=== PATIENT | female | born 1960 | race Caucasian/White ===

== ENCOUNTER 2016-11-18 13:18 | Emergency (ER) | payer OTHER ==
[~2016-11-18] VITALS: Ht 172.7 cm; Wt 56.7 kg
[~2016-11-18 13:18] MED LIST: /METH500TA OR; ABIL1TAB5 PO; ALBUTEROL INH; ALPR1TAB3 OR; BACIDCA PO; BACT800T5 PO; BENA25TA4 PO; COLA100C2 OR; DIFL150T OR; EFFE150C OR; EFFE150C PO; FLUN25SP; FLUN7IN IN; GABA-279 PO; GABA300C3 PO; GABA600T3 OR; GEOD1CAP PO; GEOD40CA2 PO; IBUP600T OR; IBUP60TA PO; LIDO1OIN2 TOP; MORP15TA2 PO; MORP15TASA PO; MORP60TA3 OR; MSIR30TA PO; NICO21PAT TD; OMEP40CA2 PO; POTA20VL PO; PRAZ1CAP PO; PRIL40CA OR; ROBA750T4 PO; SENN8.6T14 OR; SENNOSIDES PO; TIOT18INH INH; TRAZO50TA PO; VANC50VL PO; XANA1TAB2 PO; ZIPR40CA11 PO; ZIPR80CAP OR; morphine IR PO; spiriva INH
[2016-11-18] MEDS ORDERED: FLUT1LOT EX (13:53)
[2016-11-18] MEDS ORDERED: ABIL30TA PO (13:53)
[2016-11-18 14:34] LABS: MEAN CORPUSCULAR HEMOGLOBIN 32.7 pg (27.0-33.0); MEAN CORPUSCULAR HGB CONC 34.6 g/dl (32.0-36.5); MEAN CORPUSCULAR VOLUME 94.8 fl (80.0-96.0); RED CELL DISTRIBUTION WIDTH 11.8 % (11.5-14.5); WHITE BLOOD COUNT 6.6 K/mm3 (4.0-10.0)
[2016-11-18 14:56] LABS: METHADONE URINE NEGATIVE (NEGATIVE)
[2016-11-18 15:08] LABS: ALBUMIN 3.9 GM/DL (3.2-5.2); ALBUMIN/GLOBULIN RATIO 1.34 (1.00-1.93); ALKALINE PHOSPHATASE 94 U/L (45-117); ALT/SGPT 14 U/L (12-78); ANION GAP 7 MEQ/L (8-16); AST/SGOT 11 U/L (15-37); BILIRUBIN,DIRECT < 0.1 MG/DL (0.0-0.2); BILIRUBIN,TOTAL 0.2 MG/DL (0.2-1.0); BLOOD UREA NITROGEN 15 MG/DL (7-18); CALCIUM LEVEL 9.2 MG/DL (8.5-10.1); CARBON DIOXIDE LEVEL 28 MEQ/L (21-32); CHLORIDE LEVEL 112 MEQ/L (98-107); CREATININE FOR GFR 0.73 MG/DL (0.55-1.02); GLOMERULAR FILTRATION RATE > 60.0 (>51); GLUCOSE, FASTING 55 MG/DL (70-105); POTASSIUM SERUM 4.3 MEQ/L (3.5-5.1); SODIUM LEVEL 147 MEQ/L (136-145); TOTAL PROTEIN 6.8 GM/DL (6.4-8.2)
[2016-11-18 21:33] VITALS: BP 130/68
--- NOTE | 2016-11-19 06:42 | ECGEPIP ---
Stationary ECG Study [facility] - ED Test Date: 2016-11-18 Pat Name: BERE CORNEJO Department: Room: - Gender: F Burlap Roll Coverer: krzysztof : 1960 Requested By: LI Gloria Order Number: [id number] Reading MD: Gopal Meléndez Measurements Intervals [place] Rate: 91 P: 82 SD: 182 QRS: 71 QRSD: 91 T: 66 QT: 359 QTc: 443 Interpretive Statements SINUS RHYTHM CW 08/04/16 -SIMILAR Electronically Signed On 11-19-2016 6:41:49 EDT by Gopal Meléndez
== END 2016-11-18 21:39 | disposition short-term general hospital (02) ==
LOC: M ED 14:28
DX: F29 Unspecified psychosis not due to a substance or known physiological condition (principal); R91.1 Solitary pulmonary nodule
CPT/HCPCS: 36415; 80048; 80076; 80306; 84443; 85027; 93005; 99285; G0480

== ENCOUNTER 2017-01-22 22:51 | Inpatient (IN) | payer OTHER ==
[~2017-01-22] VITALS: Ht 165.1 cm; Wt 79.4 kg
[~2017-01-22 22:51] MED LIST changes: +ABIL30TA PO; +FLUT1LOT EX; +GABA-282 PO; -GABA300C3 PO
[2017-01-22] MEDS ORDERED: NS 1,000 ML IV ONE (23:00)
[2017-01-22] MEDS ORDERED: diphenhydrAMINE INJ 50MG/ML VIAL (J1200) IM ONE (23:15)
[2017-01-22] MEDS ORDERED: HALOPERIDOL 5 MG/ML VIAL (J1630) IM ONE (23:15)
[2017-01-22] MEDS ORDERED: LORazepam 2 MG/ML VIAL (J2060) IM ONE (23:15)
[2017-01-22 23:49] LABS: VENOUS PARTIAL PRESSURE CO2 42.2 mmHg (38.0-50.0); VENOUS STANDARD HCO3 26.9 MEQ/L; VENOUS TOTAL CO2 28.9 MEQ/L (24.0-28.0)
[2017-01-22 23:54] LABS: BASO # 0.1 K/mm3 (0.0-0.2); BASO % 0.8 % (0.0-1.0); EOS # 0.2 K/mm3 (0.0-0.50); LARGE UNSTAINED CELL # 0.3 K/mm3 (0.0-0.4); LARGE UNSTAINED CELL % 3.2 % (0.0-4.0); LYMPH # 2.6 K/mm3 (1.5-4.5); MEAN CORPUSCULAR HEMOGLOBIN 32.3 pg (27.0-33.0); MEAN CORPUSCULAR HGB CONC 33.5 g/dl (32.0-36.5); MEAN CORPUSCULAR VOLUME 96.7 fl (80.0-96.0); MONO # 0.9 K/mm3 (0.0-0.8); MONO % 9.6 % (0.0-5.0); NEUTROPHILS # 5.2 K/mm3 (1.8-7.7); NEUTROPHILS % 58.4 % (36.0-66.0); PLATELET COUNT, AUTOMATED 294 k/mm3 (150-450); RED CELL DISTRIBUTION WIDTH 12.7 % (11.5-14.5); WHITE BLOOD COUNT 8.9 K/mm3 (4.0-10.0)
[2017-01-23 00:17] LABS: ALBUMIN/GLOBULIN RATIO 1.33 (1.00-1.93); ALKALINE PHOSPHATASE 115 U/L (45-117); ALT/SGPT 16 U/L (12-78); ANION GAP 6 MEQ/L (8-16); AST/SGOT 8 U/L (15-37); BILIRUBIN,DIRECT < 0.1 MG/DL (0.0-0.2); BILIRUBIN,TOTAL 0.2 MG/DL (0.2-1.0); BLOOD UREA NITROGEN 11 MG/DL (7-18); CARBON DIOXIDE LEVEL 30 MEQ/L (21-32); CHLORIDE LEVEL 107 MEQ/L (98-107); GLOMERULAR FILTRATION RATE > 60.0 (>51); GLUCOSE, FASTING 114 MG/DL (70-105); POTASSIUM SERUM 4.1 MEQ/L (3.5-5.1); SODIUM LEVEL 143 MEQ/L (136-145)
[2017-01-23 01:12] LABS: METHADONE URINE NEGATIVE (NEGATIVE)
--- NOTE | 2017-01-23 10:44 | ECGEPIP ---
Stationary ECG Study [facility] - ED Test Date: 2017-01-22 Pat Name: BERE CORNEJO Department: Room: - Gender: F Research Physiologist: arthur : 1960 Requested By: ROSMERY Li Order Number: [id number] Reading MD: Adamaris Rivera Measurements Intervals [place] Rate: 112 P: 73 MA: 132 QRS: 67 QRSD: 90 T: 63 QT: 316 QTc: 432 Interpretive Statements SINUS TACHYCARDIA POSSIBLE LEFT ATRIAL ENLARGEMENT POSSIBLE RIGHT VENTRICULAR CONDUCTION DELAY ABNORMAL RHYTHM ECG INCREASED RATE 11/18/16 Electronically Signed On 01-23-2017 10:43:57 EDT by Adamaris Rivera
[2017-01-23] MEDS ORDERED: ALBUTEROL SULFATE 2.5 MG/0.5 ML INH NEB SOLN INH ONE (12:30)
[2017-01-23] MEDS ORDERED: IPRATROPIUM 0.5MG/ALBUTEROL 2.5MG INH SOL UD 3ML (DUONEB)(J7620) NEB ONE (12:30)
[2017-01-23] MEDS ORDERED: MOM 30ML SUSPENSION UDC PO PRN (16:15)
[2017-01-23] MEDS ORDERED: traZODone 50 MG TAB PO PRN (16:15)
[2017-01-23] MEDS ORDERED: MAALOX 30 ML SUSP *UDC PO PRN (16:15)
[2017-01-23] MEDS ORDERED: ACETAMINOPHEN TAB 650MG DOSE (2X325MG) PO PRN (16:15)
[2017-01-23] MEDS ORDERED: ADVI200T PO (17:20)
[2017-01-23] MEDS ORDERED: SPIR1CAP INH (17:20)
[2017-01-23 18:15] VITALS: BP 123/64
[2017-01-24 06:19] VITALS: BP 116/68
[2017-01-24] MEDS ORDERED: LORazepam 2 MG TAB PO PRN (08:30)
[2017-01-24] MEDS ORDERED: OLANZapine 10 MG TAB PO PRN (08:30)
--- NOTE | 2017-01-24 09:33 | MHHPEPDOC ---
[facility] History & Physical History and Physical DATE OF ADMISSION: January 23, 2017 at 16:15 LEGAL STATUS AT ADMISSION: 9.39 CHIEF COMPLAINT: "Just because my sister said I did it doesn't mean I did. She' s a drug addict". HISTORY OF THE PRESENT ILLNESS: Patient is a 56-year-old female, who a of the [place] . She denies any deployments. She has a psychiatrist at the [facility], Mary Turner, who was scheduled to see her on . Pt states she was seen by the doctor 2 weeks ago but upon obtaining collateral information staff say she no showed that appointment and has no future appts scheduled. Pt has been off her medications for some time. She claims to be waiting for a delivery of VA meds and refuses to provide database report writer with the names of her prescribed psychiatric meds. [place] [facility] [place] provide names and doses. Pt has along h/o admissions at this facility. Her most recent admission was 11/18/16 which resulted in transfer to a [facility] facility. Other admissions here resulted in transfer to [facility]. Pt is not insisting on VA care at this time. She is rude, sarcastic and antagonistic on interview, refusing to answer questions and provide information. PSYCHIATRIC REVIEW OF SYSTEMS: Affective: hostile Anxiety:high Trauma: unable to determine Psychosis: appears to have delusions and delusions by history resulting in self- harm Personally: uncooperative PAST PSYCHIATRIC HISTORY: Prior Psychiatric Disorder: long history of schizoaffective disorder, bipolar type Outpatient Treatment: [facility] [place], Dr. Mary Turner. Suicidal/Self injurious: burning self, overdose Psychotropic Medication History: pt would not provide information, current meds are Invega, Prazosin and Gabapentin ALLERGIES: Please see below. PCN and topiramate FAMILY PSYCHIATRIC HISTORY: Pt claims sister is drug addict. SOCIAL HISTORY: Early Relations/development: . pt refused to discuss Sibling order: has 1 sister Paternal relationships: pt refused to answer Education: pt declined to answer Occupational: no response from pt Legal: laughs Martial: laughs again Economic: pt refused to answer Supports: pt told database report writer to go away. Abuse/trauma: nonaudible answer SUBSTANCE ABUSE HISTORY: pt states she attended AA for 4 years PAST MEDICAL/SURGICAL HISTORY: 1. . 2. . VITAL SIGNS: Temperature 97.5 pulse , respiratory rate 20, blood pressure 116/ 68 pulse on room air. MENTAL STATUS EXAMINATION: General appearance: Patient is a 56-year old female, who is lying in bed in hospital attire and appears older than stated age. Speech: fluent in [place]ene[place], skills intact Thought processes: appears to be having delusions, refuses to answer questions Thought content: anger towards sister and staff Abstract reasoning and computation: refused to participate Description of associations: refused to answer Description of abnormal or psychotic thoughts: appears to be internally preoccupied, h/o auditory hallucinations Judgment: poor Insight: poor Orientation: would not respond to questions. Recent and remote memory: unable to assess. Attention span and concentration: poor Fund of knowledge: poor Mood: irritable and angry Affect: congruent, lying in bed DIAGNOSES: 1. Schizophrenia 2. bipolar disorder by history 3. PTSD by history ASSESSMENT: Pt has been approached by several staff members this morning including this database report writer who are interested in planning her care and prepare her for discharge. pt is not cooperative to the process refusing to provide information and answer most questions. She is agreeable to remaining here for treatment. No SRIRAM for sister, unable to contact for collateral information. Will attempt to contact [facility] [place] for a list of most recent medications if pt will sign SRIRAM. PROBLEM LIST: 1. suicidal 2. poor coping skills 3. treatment non-compliance. INITIAL TREATMENT PLAN: 1. Patient was admitted on a 9.39 2. Complete history was obtained. 3. With patients permission, family will be contacted and database will be expanded. 4. Patients medication regimen will be reviewed and changed accordingly. 5. Patient will be provided with protected environment. 6. Patient will be treated with individual, group, and milieu therapies. 7. Patient will receive supportive psych-education. 8. Discharge planning will commence immediately. 9. Outpatient follow-up treatment will be strongly recommended. 10. The initial treatment plan will focus initially on: see above problem list. ESTIMATED LENGTH OF STAY: 7-10 DAYS. TIME SPENT COUNSELING AND COORDINATING INITIAL CARE: 50minutes. Medications Scheduled Tiotropium [place] Monohydrate (Spiriva Handihaler) 18 Mcg Cap, 1 INHALATION INH DAILY, (Reported) Scheduled PRN Ibuprofen (Advil) 200 Mg Tab, 200 MG PO for PAIN, (Reported) Allergies Coded Allergies: Penicillins (Unverified Allergy, Unknown, 12/11/14) per pt Topiramate (Unverified Allergy, Unknown, 12/11/14) per pt Anna Boland January 24, 2017 09:33
[2017-01-24] MEDS: PALIPERIDONE 6 MG ER TAB (INVEGA) PO SCH (09:45)
[2017-01-24] MEDS: GABAPENTIN 300 MG CAP PO SCH ×3 (09:45→20:07)
--- NOTE | 2017-01-24 09:52 | HPEPDOC ---
Medical History and Physical Date of Admission January 23, 2017 at 16:15 History and Physical PCP: [facility] HPI: 56yoF admitted to [facility] for unspecified depressive disorder, being medically examined today. The patient was brought to the emergency department for possible overdose of ibuprofen 60 tablets, muscle relaxers 20 tablets. Patient apparently did not admit to taking any medications and declines to answer questions in the emergency department. Patient had apparently been off her medications recently. Poison control was consulted in the emergency department with recommendation for IV fluids and repeat salicylate level. She was subsequently observed and deemed stable for transfer to [facility] to 01/22/17. The patient is reluctant to participate with exam however does answer and provide some limited history, she becomes agitated with questions. Much of her history is taken from her chart. She states "There is nothing wrong with me". No acute medical complaints today. Denies any fevers, chills, weakness, fatigue , CARVER, CP, SOB, cough, palpitations, abdominal pain, flank pain, N/V/D or changes in bowel or bladder habits. PMHx: Environmental allergies PTSD Schizophrenia H/O SI Chronic back pain COPD PSHX: Documented history of chest tube placement though patient denies this today. SOCHX: Resides in: Living in [facility] with her sister. Marital Status: Single. Kids: 0 Employment: Disabled ETOH: Denies Smoking: One half pack per day. Illicit Drugs: Denies IV Drug Use: Denies Tattoos done unprofessionally: 2 at 17 years old FAMHX: Mother: age 62 secondary to pancreatic cancer Father: age 68 secondary to an unknown lung disorder Siblings: Alive, well Unexpected deaths due to medical reasons: None. ROS: As noted in HPI, otherwise 10pt ROS of systems reviewed and remarkable only for patient noting she is post-menopausal, stating her LMP was in 1999. States she has chronic low back pain and takes wkmf-dua-seiclar medication such as Tylenol or ibuprofen as needed. Patient states her pain is controlled. PE: GEN: 56yo, appears older than stated age. Well-nourished, well developed. No acute distress. Alert and oriented x 3. Agitated throughout exam, reluctant to provide answers. HEENT: Normocephalic, atraumatic. Pupils equal round reactive to light. Extraocular movements are intact. No nystagmus appreciated. Sclera nonicteric. Conjunctiva without injection. Nose midline. Moist mucous membranes. Dentition fair. Pharynx pink and moist, no cobblestoning. Neck supple, trachea midline. No lymphadenopathy or thyromegaly appreciated. CHEST: Regular rate and rhythm, +S1, +S2 LUNGS: Mild end expiratory wheeze appreciated in upper lung [place]. No rales or rhonchi. Breathing appears symmetric and easy. Patient is speaking in full sentences. No accessory muscle use. ABD: Round, soft, non-tender, non-distended. +Bowel sounds throughout. No rebound or guarding. No costovertebral angle tenderness. EXT: Pulses 2+ bilaterally dorsalis pedis and radial. No lower extremity edema appreciated. SKIN: [place], dry, warm. Capillary refill <2sec. No rashes. NEURO: Alert and oriented x 3. No focal deficits appreciated. EK01/22/17 SINUS TACHYCARDIA POSSIBLE LEFT ATRIAL ENLARGEMENT POSSIBLE RIGHT VENTRICULAR CONDUCTION DELAY ABNORMAL RHYTHM ECG INCREASED RATE 11/18/16 A&P:56yoF admitted to [facility] for unspecified depressive disorder 1. Psych. Plan per Psychiatry. EKG on file. 2. Nicotine dependence. Patch available. 3. Borderline EKG. No cardiac signs or symptoms appreciated on exam, follow with PCP. 4. Follow up [facility] 5. COPD. Continue Spiriva. Albuterol 2 puffs every 4 hours as needed. 6. H/O Pulmonary nodule. Biopsy pending per chart. Continue with outpt management. 7. Staff member Christy TURPIN present throughout exam. Vital Signs Vital Signs Date Time Temp Pulse Resp B/P (MAP) Pulse Ox O2 Delivery O2 Flow Rate FiO2 01/24/17 06:19 97.5 93 20 116/68 (84) Room Air 01/23/17 18:15 96 Laboratory Data Labs 24H Item Value Date Time Sodium Level 143 MEQ/L 01/22/17 2340 Potassium Level 4.1 MEQ/L 01/22/17 2340 Chloride Level 107 MEQ/L 01/22/17 2340 Carbon Dioxide Level 30 MEQ/L 01/22/17 2340 Anion Gap 6 MEQ/L L 01/22/17 2340 Blood Urea Nitrogen 11 MG/DL 01/22/17 2340 Creatinine 1.00 MG/DL 01/22/17 2340 Glomerular Filtration Rate > 60.0 01/22/17 2340 Fasting Glucose 114 MG/DL H 01/22/17 2340 Calcium Level 10.0 MG/DL 01/22/17 2340 Total Bilirubin 0.2 MG/DL 01/22/17 2340 Direct Bilirubin < 0.1 MG/DL 01/22/17 2340 Aspartate Amino Transf (AST/SGOT) 8 U/L L 01/22/17 2340 Alanine Aminotransferase (ALT/SGPT) 16 U/L 01/22/17 2340 Alkaline Phosphatase 115 U/L 01/22/17 2340 Total Creatine Kinase 86 U/L 01/22/17 2340 Total Protein 7.0 GM/DL 01/22/17 2340 Albumin 4.0 GM/DL 01/22/17 2340 Albumin/Globulin Ratio 1.33 01/22/170 Thyroid Stimulating Hormone (TSH) 0.659 uIU/ML 01/22/17 2340 White Blood Count 8.9 K/mm3 01/22/17 2340 Red Blood Count 5.03 M/mm3 01/22/17 2340 Hemoglobin 16.3 g/dl H 01/22/17 2340 Hematocrit 48.7 % H 01/22/17 2340 Mean Corpuscular Volume 96.7 fl H 01/22/17 2340 Mean Corpuscular Hemoglobin 32.3 pg 01/22/17 2340 Mean Corpuscular Hemoglobin Concent 33.5 g/dl 01/22/17 2340 Red Cell Distribution Width 12.7 % 01/22/17 2340 Platelet Count 294 k/mm3 01/22/17 2340 Salicylates Level 5.4 MG/DL 01/23/17 0406 Urine Opiates Screen NEGATIVE 01/22/17 2359 Urine Methadone Screen NEGATIVE 01/22/179 Acetaminophen Level < 2.0 UG/ML L 01/22/17 2340 Urine Barbiturates Screen NEGATIVE 01/22/17 2359 Urine Phencyclidine Screen NEGATIVE 01/22/179 Urine Amphetamines Screen NEGATIVE 01/22/17 2359 Urine Benzodiazepines Screen NEGATIVE 01/22/179 Urine Cocaine Metabolite Screen NEGATIVE 01/22/17 2359 Urine Cannabinoids Screen NEGATIVE 01/22/179 Ethyl Alcohol Level 0.004 % 01/22/17 2340 Home Medications Scheduled Tiotropium [place] Monohydrate (Spiriva Handihaler) 18 Mcg Cap, 1 INHALATION INH DAILY Scheduled PRN Ibuprofen (Advil) 200 Mg Tab, 200 MG PO for PAIN Allergies Coded Allergies: Penicillins (Unverified Allergy, Unknown, 12/11/14) per pt Topiramate (Unverified Allergy, Unknown, 12/11/14) per pt Deya Corrales January 24, 2017 09:51
[2017-01-24] MEDS ORDERED: ALBUTEROL 90 MCG/ACT 8GM HFA INHALER INH PRN (10:00)
[2017-01-24] MEDS: TIOTROPIUM INHALER/CAPSULE (SPIRIVA) INH SCH (11:43)
[2017-01-24 18:10] VITALS: BP 113/82
[2017-01-24 20:09] VITALS: BP 110/64
[2017-01-24] MEDS ORDERED: PRAZOSIN 1 MG CAP PO SCH (21:00)
[2017-01-25 06:32] VITALS: BP 112/65
[2017-01-25] MEDS: TIOTROPIUM INHALER/CAPSULE (SPIRIVA) INH SCH (08:00)
[2017-01-25] MEDS: PALIPERIDONE 6 MG ER TAB (INVEGA) PO SCH (09:00)
[2017-01-25] MEDS: GABAPENTIN 300 MG CAP PO SCH ×2 (09:00→16:00)
--- NOTE | 2017-01-25 14:22 | MHDSPDOC ---
[facility] Discharge Summary Discharge Summary DATE OF ADMISSION: January 23, 2017 at 16:15 DATE OF DISCHARGE: January 25, 2017 DISCHARGE DIAGNOSES: 1. Schizophrenia 2. PTSD by history REASON FOR ADMISSION: pt's sister called 911 after she found employ bottles of muscle relaxers, Advil and ibuprofen. Pt had threatened suicide earlier in the presence of the sister. Pt was despondent after she had to give up her home for code violations. Pt is a former member of the [place] and [facility] trips to [facility]. She refused to sign SRIRAM's or answer our questions regarding transfer yesterday. We contacted the [facility] outpt clinic and found out she was scheduled to be seen there on 01/11/17 but failed to show. It appears she cancelled the appt in September 2016. Pt claims to be missing her VA medications that come to her via the [employer]. However, since she did not keep her appt it is unlikely her medications were sent out. She was assaultive to [facility] staff in the ED and required restraint. She initially refused all treatment efforts but gradually became a little more cooperative to our interventions. She would not make any decisions regarding where she preferred treatment. She refused to tell us her medications. CONSULTANTS INVOLVED: na TREATMENT AND PROGRESS ON THE UNIT : Invega 6 mg po was ordered along with prazosin and gabapentin. She would only take acetaminophen and prazosin last night. She continues to present with far off stare, irritability, and labile mood. Observed smiling at times. No interaction with peers observed. She appeared to sleep last night. She ate at meal times. She did not attending programming. Lactation Specialist attempted to discuss DAVILA medication with her and she stated she had been on that medication in the past and it caused her to "sleep a week of my life away". She refused to have additional discussion about medication. She refused to allow us to contact her sister to discuss housing options. We explained options to her but she declined to allow us to assist her in any way. HOSPITAL COURSE: Over 2 days there has been no progress in the therapeutic alliance or treatment adherence. Hiren is very angry and cannot engage very long before she becomes hostile and sarcastic. She has benefitted from the safe environment. She continues to claim she did not overdose on medications. EK01/22/17 SINUS TACHYCARDIA POSSIBLE LEFT ATRIAL ENLARGEMENT POSSIBLE RIGHT VENTRICULAR CONDUCTION DELAY ABNORMAL RHYTHM ECG INCREASED RATE 11/18/16 pt declined repeat ECG. DISCHARGE ASSESSMENT: Pt was invited to treatment team meeting this morning and accepted. At that time she agreed to SRIRAM for OR but not for family. She was able to tell us she wanted to be transported to the OR. We immediately began the process for her. She continues to deny any psychotic symptoms but it is obvious from observation that she has internal stimuli that is distracting and is affecting her functioning. She would not be a candidate for discharge but is a candidate for transfer since she is a [place] and a bed is available for her. Report given and documents faxed to [facility]. It is unknown if pt has made prior suicide attempts. Family history and personal history are unknown MENTAL STATUS EXAMINATION ON DISCHARGE: Patient is a 56-year old female, who is dressed in hospital attire, white, curly hair, poor eye contact and appears older than stated age. Speech is soft and low in tone, speaks when addressed. does not initiate conversation Language skills are intact Thought processes including: suspected delusions - calling her sister a drug addict and accusing her of having orgies. She has some FOI but no IOR. Her thinking is concrete. Thought content: irrational, illogical Abstract reasoning, and computation: poor Description of associations: poor Description of abnormal or psychotic thoughts: laughing at times when no visible stimulus is available, accusing others of doing things that are not happening. Judgment: poor Insight: poor Orientation to refuses to answer questions but appears oriented to place, month , person. Recent and remote memory: unable to assess. Attention span and concentration: poor Fund of knowledge: poor. Mood: labile, irritable Affect: constricted. MEDICATIONS ON DISCHARGE: refer to patients med orders for paliperidone 6 mg q a.m., gabapentin 600 mg tid and prazosin 1 mg at hs. Pt took trazodone 50 mg on 01/24/17, her first night on the unit. PLAN/FOLLOWUP ARRANGEMENTS: Transfer to [facility] in [facility], outpatient services in place at the [facility]. Dr. Rut Turner. The amount of time spent in the coordination of care for this patient was approximately 30 minutes. Vital Signs/I&Os Vital Signs Date Time Temp Pulse Resp B/P (MAP) Pulse Ox O2 Delivery O2 Flow Rate FiO2 5/18/17 06:32 98.2 80 18 112/65 (81) 01/24/17 06:19 Room Air 01/23/17 18:15 96 Medications Scheduled Tiotropium [place] Monohydrate (Spiriva Handihaler) 18 Mcg Cap, 1 INHALATION INH DAILY, (Reported) Scheduled PRN Ibuprofen (Advil) 200 Mg Tab, 200 MG PO for PAIN, (Reported) Allergies Coded Allergies: Penicillins (Unverified Allergy, Unknown, 12/11/14) per pt Topiramate (Unverified Allergy, Unknown, 12/11/14) per pt Anna Boland January 25, 2017 14:22
== END 2017-01-25 17:45 | disposition short-term general hospital (02) | DRG 885 ==
LOC: EDBD 22:51 → M ED 23:08 → M ED INP 01-23 16:15 → M PSY 01-23 17:35
PROVIDERS: ADMIT Psychiatry & Neurology Psychiatry; ATTEND Psychiatry & Neurology Psychiatry
DX: F20.9 Schizophrenia, unspecified (principal); F43.10 Post-traumatic stress disorder, unspecified; F17.210 Nicotine dependence, cigarettes, uncomplicated; R94.31 Abnormal electrocardiogram [ECG] [EKG]; J44.9 Chronic obstructive pulmonary disease, unspecified; R91.1 Solitary pulmonary nodule; Z88.0 Allergy status to penicillin; Z88.8 Allergy status to other drugs, medicaments and biological substances; Z79.899 Other long term (current) drug therapy; Z91.5 Personal history of self-harm; Z80.0 Family history of malignant neoplasm of digestive organs; Z83.6 Family history of other diseases of the respiratory system

== ENCOUNTER 2017-06-20 14:53 | Emergency (ER) | payer OTHER ==
[~2017-06-20 14:53] MED LIST changes: +ABIL10TA9 PO; -ABIL1TAB5 PO; -ABIL30TA PO; +ABIL30TA4 PO; +ADVI200T PO; +SPIR1CAP INH
[2017-06-20 16:17] LABS: MEAN CORPUSCULAR HEMOGLOBIN 32.4 pg (27.0-33.0); MEAN CORPUSCULAR VOLUME 95.1 fl (80.0-96.0); RED CELL DISTRIBUTION WIDTH 12.4 % (11.5-14.5); WHITE BLOOD COUNT 8.7 10^3/uL (4.0-10.0)
[2017-06-20 16:52] LABS: ALBUMIN/GLOBULIN RATIO 1.33 (1.00-1.93); ALKALINE PHOSPHATASE 81 U/L (45-117); ALT/SGPT 21 U/L (12-78); ANION GAP 10 MEQ/L (8-16); AST/SGOT 18 U/L (15-37); BILIRUBIN,DIRECT < 0.1 MG/DL (0.0-0.2); BILIRUBIN,TOTAL 0.3 MG/DL (0.2-1.0); BLOOD UREA NITROGEN 7 MG/DL (7-18); CALCIUM LEVEL 9.8 MG/DL (8.5-10.1); CARBON DIOXIDE LEVEL 23 MEQ/L (21-32); CHLORIDE LEVEL 104 MEQ/L (98-107); CREATININE FOR GFR 0.67 MG/DL (0.55-1.02); GLOMERULAR FILTRATION RATE > 60.0 (>51); GLUCOSE, FASTING 132 MG/DL (70-105); POTASSIUM SERUM 3.6 MEQ/L (3.5-5.1); SODIUM LEVEL 137 MEQ/L (136-145)
--- NOTE | 2017-06-20 17:18 | ECGEPIP ---
Stationary ECG Study [facility] - ED Test Date: 2017-06-20 Pat Name: BERE CORNEJO Department: Room: - Gender: F Compensation Analyst: : 1960 Requested By: GURDEEP Cartwright Order Number: [id number] Reading MD: Israel Macedo Measurements Intervals [place] Rate: 93 P: 73 RI: 175 QRS: 58 QRSD: 90 T: 64 QT: 340 QTc: 425 Interpretive Statements SINUS RHYTHM POSSIBLE LEFT ATRIAL ENLARGEMENT INC. RBBB SIMILAR TO 01/22/17 Electronically Signed On 06-20-2017 17:09:39 EDT by Israel Macedo
[2017-06-20 17:52] LABS: METHADONE URINE NEGATIVE (NEGATIVE)
[2017-06-21 00:39] VITALS: BP 128/68
== END 2017-06-21 00:46 ==
LOC: M ED 14:53
DX: Z04.6 Encounter for general psychiatric examination, requested by authority (principal); F20.9 Schizophrenia, unspecified; J44.9 Chronic obstructive pulmonary disease, unspecified; M54.9 Dorsalgia, unspecified; G89.29 Other chronic pain; F43.10 Post-traumatic stress disorder, unspecified; J30.89 Other allergic rhinitis; F17.210 Nicotine dependence, cigarettes, uncomplicated; Z79.899 Other long term (current) drug therapy; Z88.8 Allergy status to other drugs, medicaments and biological substances; Z88.0 Allergy status to penicillin
CPT/HCPCS: 80048; 80076; 80307; 84443; 85027; 93005; 99285; G0480

== ENCOUNTER 2018-04-05 12:58 | Emergency (ER) | payer OTHER ==
[2018-04-05 13:58] LABS: BASO # 0.1 10^3/uL (0.0-0.2); BASO % 0.7 % (0.0-1.0); EOS # 0.2 10^3/uL (0.0-0.50); EOS % 2.9 % (0.0-3.0); HEMATOCRIT 46.8 % (36.0-47.0); HEMOGLOBIN 15.5 g/dl (12.0-15.5); IMMATURE GRANULOCYTE % 0.3 % (0-3.0); LYMPH # 2.1 10^3/uL (1.5-4.5); LYMPH % 30.3 % (24.0-44.0); MEAN CORPUSCULAR HEMOGLOBIN 32.6 pg (27.0-33.0); MEAN CORPUSCULAR HGB CONC 33.1 g/dl (32.0-36.5); MEAN CORPUSCULAR VOLUME 98.5 fl (80.0-96.0); MONO # 0.8 10^3/uL (0.0-0.8); MONO % 10.9 % (0.0-5.0); NEUTROPHILS # 3.8 10^3/uL (1.8-7.7); NEUTROPHILS % 54.9 % (36.0-66.0); PLATELET COUNT, AUTOMATED 275 10^3/uL (150-450); RED BLOOD COUNT 4.75 10^6/uL (4.00-5.40); RED CELL DISTRIBUTION WIDTH 12.7 % (11.5-14.5); WHITE BLOOD COUNT 6.9 10^3/uL (4.0-10.0)
[2018-04-05 14:12] LABS: INR 0.91; PROTHROMBIN TIME 12.4 SECONDS (12.1-14.4)
[2018-04-05 14:13] LABS: PARTIAL THROMBOPLASTIN TIME 26.3 SECONDS (25.4-37.6)
[2018-04-05 14:21] LABS: ANION GAP 6 MEQ/L (8-16); BLOOD UREA NITROGEN 11 MG/DL (7-18); CALCIUM LEVEL 8.7 MG/DL (8.5-10.1); CARBON DIOXIDE LEVEL 28 MEQ/L (21-32); CHLORIDE LEVEL 109 MEQ/L (98-107); CPK CREATINE PHOSPHOKINASE 210 U/L (26-192); CREATININE FOR GFR 0.61 MG/DL (0.55-1.30); ETHYL ALCOHOL (ETHANOL) < 0.003 % (0.000-0.010); FREE T4 1.42 NG/DL (0.76-1.46); GLOMERULAR FILTRATION RATE > 60.0 (>51); GLUCOSE, FASTING 114 MG/DL (70-100); MAGNESIUM LEVEL 2.2 MG/DL (1.8-2.4); POTASSIUM SERUM 3.8 MEQ/L (3.5-5.1); SODIUM LEVEL 143 MEQ/L (136-145); TROPONIN I < 0.02 NG/ML (< 0.10)
[2018-04-05 14:27] LABS: CK-MB VALUE MASS 1.9 NG/ML (<3.6); THYROID STIMULATING HORMONE 0.481 uIU/ML (0.358-3.740)
[2018-04-05 16:23] LABS: KETONE, URINE AUTO RFX NEGATIVE (NEGATIVE); LEUKOCYTE ESTERASE UR AUTO RFX NEGATIVE (NEGATIVE); MUCUS, URINE RFX SMALL (NEGATIVE); NITRITE, URINE AUTO RFX NEGATIVE (NEGATIVE); RBC, URINE AUTO RFX 0 /HPF (0-3); SPECIFIC GRAVITY UR AUTO RFX 1.008 (1.002-1.035); SQUAM EPITHELIAL CELL UR AURFX 0 /HPF (0-6); WBC, URINE AUTO RFX 0 /HPF (0-3)
[2018-04-05 16:36] LABS: AMPHETAMINES LEVEL URINE NEGATIVE (NEGATIVE); BARBITURATES URINE NEGATIVE (NEGATIVE); BENZODIAZEPINES URINE NEGATIVE (NEGATIVE); CANNABINOIDS URINE NEGATIVE (NEGATIVE); COCAINE METABOLITE URINE NEGATIVE (NEGATIVE); METHADONE URINE NEGATIVE (NEGATIVE); OPIATES URINE NEGATIVE (NEGATIVE); PHENCYCLIDINE URINE NEGATIVE (NEGATIVE)
== END 2018-04-05 17:03 | disposition home or self-care (01) ==
LOC: M ED 12:58
DX: R55 Syncope and collapse (principal); S20.211A Contusion of right front wall of thorax, initial encounter; X58.XXXA Exposure to other specified factors, initial encounter; Y92.099 Unspecified place in other non-institutional residence as the place of occurrence of the external cause; Y93.01 Activity, walking, marching and hiking; Y99.9 Unspecified external cause status; I45.19 Other right bundle-branch block; F43.10 Post-traumatic stress disorder, unspecified; F41.9 Anxiety disorder, unspecified; F32.9 Major depressive disorder, single episode, unspecified; J44.9 Chronic obstructive pulmonary disease, unspecified; Z72.0 Tobacco use; Z79.899 Other long term (current) drug therapy; Z88.0 Allergy status to penicillin; Z88.8 Allergy status to other drugs, medicaments and biological substances
CPT/HCPCS: 71045

== ENCOUNTER 2018-04-08 11:33 | Inpatient (IN) | payer OTHER ==
[2018-04-08 12:47] LABS: HEMATOCRIT 46.8 % (36.0-47.0); HEMOGLOBIN 15.7 g/dl (12.0-15.5); MEAN CORPUSCULAR HEMOGLOBIN 32.2 pg (27.0-33.0); MEAN CORPUSCULAR HGB CONC 33.5 g/dl (32.0-36.5); MEAN CORPUSCULAR VOLUME 95.9 fl (80.0-96.0); PLATELET COUNT, AUTOMATED 266 10^3/uL (150-450); RED BLOOD COUNT 4.88 10^6/uL (4.00-5.40); RED CELL DISTRIBUTION WIDTH 12.3 % (11.5-14.5); WHITE BLOOD COUNT 7.3 10^3/uL (4.0-10.0)
[2018-04-08 13:10] LABS: ALBUMIN 3.5 GM/DL (3.2-5.2); ALBUMIN/GLOBULIN RATIO 1.06 (1.00-1.93); ALKALINE PHOSPHATASE 71 U/L (45-117); ALT/SGPT 38 U/L (12-78); ANION GAP 9 MEQ/L (8-16); AST/SGOT 29 U/L (7-37); BILIRUBIN,DIRECT 0.2 MG/DL (0.0-0.2); BILIRUBIN,TOTAL 0.4 MG/DL (0.2-1.0); BLOOD UREA NITROGEN 7 MG/DL (7-18); CALCIUM LEVEL 8.9 MG/DL (8.5-10.1); CARBON DIOXIDE LEVEL 27 MEQ/L (21-32); CHLORIDE LEVEL 107 MEQ/L (98-107); CREATININE FOR GFR 0.78 MG/DL (0.55-1.30); ETHYL ALCOHOL (ETHANOL) < 0.003 % (0.000-0.010); GLOMERULAR FILTRATION RATE > 60.0 (>51); GLUCOSE, FASTING 105 MG/DL (70-100); POTASSIUM SERUM 3.9 MEQ/L (3.5-5.1); SODIUM LEVEL 143 MEQ/L (136-145); THYROID STIMULATING HORMONE 0.472 uIU/ML (0.358-3.740); TOTAL PROTEIN 6.8 GM/DL (6.4-8.2)
[2018-04-08 13:13] LABS: ACETAMINOPHEN LEVEL < 2.0 UG/ML (10.0-30.0)
[2018-04-08 18:04] LABS: AMPHETAMINES LEVEL URINE NEGATIVE (NEGATIVE); BARBITURATES URINE NEGATIVE (NEGATIVE); BENZODIAZEPINES URINE NEGATIVE (NEGATIVE); CANNABINOIDS URINE NEGATIVE (NEGATIVE); COCAINE METABOLITE URINE NEGATIVE (NEGATIVE); METHADONE URINE NEGATIVE (NEGATIVE); OPIATES URINE NEGATIVE (NEGATIVE); PHENCYCLIDINE URINE NEGATIVE (NEGATIVE)
[2018-04-08] MEDS ORDERED: traZODone 50 MG TAB PO (23:00)
[2018-04-08] MEDS ORDERED: MOM 30ML SUSPENSION UDC PO (23:00)
[2018-04-08] MEDS ORDERED: MAALOX 30 ML SUSP *UDC PO (23:00)
[2018-04-09] MEDS ORDERED: ALBUTEROL 90 MCG/ACT 8GM HFA INHALER INH (09:30)
[2018-04-09] MEDS: TIOTROPIUM INHALER/CAPSULE (SPIRIVA) INH (09:47)
[2018-04-09] MEDS: ACETAMINOPHEN TAB 650MG DOSE (2X325MG) PO (19:41)
[2018-04-09] MEDS: ARIPiprazole 10 MG TAB PO (21:00)
[2018-04-09] MEDS ORDERED: ARIPiprazole 15 MG TAB (AbiLIFY) PO (21:00)
[2018-04-10] MEDS: ACETAMINOPHEN TAB 650MG DOSE (2X325MG) PO ×4 (01:39→23:44)
[2018-04-10] MEDS: ARIPiprazole 10 MG TAB PO ×2 (08:39→20:47)
[2018-04-10] MEDS: TIOTROPIUM INHALER/CAPSULE (SPIRIVA) INH (08:40)
[2018-04-11] MEDS: ACETAMINOPHEN TAB 650MG DOSE (2X325MG) PO ×2 (06:28→16:52)
[2018-04-11] MEDS: TIOTROPIUM INHALER/CAPSULE (SPIRIVA) INH (09:16)
[2018-04-11] MEDS: ARIPiprazole 10 MG TAB PO ×2 (09:16→20:23)
[2018-04-11] MEDS: ARIPiprazole MONOHYDRATE 400 MG INJ (ABILIFY)(J0401) IM (11:23)
[2018-04-12] MEDS: ACETAMINOPHEN TAB 650MG DOSE (2X325MG) PO ×2 (03:21→11:37)
[2018-04-12] MEDS: TIOTROPIUM INHALER/CAPSULE (SPIRIVA) INH (08:37)
[2018-04-12] MEDS: ARIPiprazole 10 MG TAB PO (08:37)
== END 2018-04-12 11:45 | disposition home or self-care (01) | DRG 885 ==
LOC: M PSY 04-09 → M ED 11:33 → M ED INP 22:47
DX: F20.0 Paranoid schizophrenia (principal); J44.9 Chronic obstructive pulmonary disease, unspecified; F17.210 Nicotine dependence, cigarettes, uncomplicated; J30.9 Allergic rhinitis, unspecified; F43.10 Post-traumatic stress disorder, unspecified; M54.9 Dorsalgia, unspecified; Z79.899 Other long term (current) drug therapy; Z62.810 Personal history of physical and sexual abuse in childhood; Z88.0 Allergy status to penicillin

== ENCOUNTER 2018-11-17 20:23 | Emergency (ER) | payer OTHER ==
[~2018-11-17] VITALS: Ht 165.1 cm; Wt 109.1 kg
[~2018-11-17 20:23] MED LIST changes: +ABIL400I IM; +ARIP10TAB PO; +ARIP1TAB3; -EFFE150C PO; +EFFE150C2 PO; +GABA-1171 PO; -GABA-279 PO; -GABA-282 PO; +GABA-843 PO; +GEOD40CA13 PO; -GEOD40CA2 PO; +METH75TA; +PERC5TAB12 PO; +PROAAER10 INH; +[UNRECOGNIZED DRUG - CODE]; +[UNRECOGNIZED DRUG - CODE] PO
[2018-11-17] MEDS ORDERED: METH75TA (20:30)
[2018-11-17] MEDS ORDERED: ABIL20TA5 (20:30)
[2018-11-17] MEDS ORDERED: ACETAMINOPHEN/CODEINE 300MG/30MG 12.5 ML UDC PO ONE (22:15)
[2018-11-17] MEDS ORDERED: IPRATROPIUM 0.5MG/ALBUTEROL 2.5MG INH SOL UD 3ML (DUONEB)(J7620) NEB ONE ×2 (22:15)
[2018-11-17] MEDS ORDERED: methylPREDNISolone INJ 125 MG/2 ML VIAL (J2930) IM ONE (22:15)
[2018-11-17] MEDS ORDERED: CHERSYP3 PO (23:14)
[2018-11-17] MEDS ORDERED: PRED20TA PO (23:14)
[2018-11-17] MEDS ORDERED: DOXY100C PO (23:14)
[2018-11-17 23:46] VITALS: BP 112/56
--- NOTE | 2018-11-18 04:12 | REP ---
Clinical: Left rib pain after excessive coughing Technique: Frontal view of the chest with four views of the left hemithorax. Findings: Frontal view of the chest demonstrates old healed right rib fractures. No acute cardiopulmonary process. Multiple views of the left hemithorax demonstrates no obvious acute rib fracture or pathology. A chronic benign enchondroma is identified within the proximal left humerus and unchanged when compared to chest x-ray dated 2013. Impression: Normal left rib series Electronically Signed by Perez Alvarez MD 11/18/2018 04:03 A
== END 2018-11-17 23:49 | disposition home or self-care (01) ==
LOC: M ED 20:23
DX: R07.89 Other chest pain (principal); R05 Cough; J44.9 Chronic obstructive pulmonary disease, unspecified; R06.02 Shortness of breath; F20.9 Schizophrenia, unspecified; F41.9 Anxiety disorder, unspecified; F32.9 Major depressive disorder, single episode, unspecified; F43.10 Post-traumatic stress disorder, unspecified; F29 Unspecified psychosis not due to a substance or known physiological condition; R91.1 Solitary pulmonary nodule; F17.200 Nicotine dependence, unspecified, uncomplicated; Z87.81 Personal history of (healed) traumatic fracture; Z88.0 Allergy status to penicillin; Z88.8 Allergy status to other drugs, medicaments and biological substances; Z79.899 Other long term (current) drug therapy
CPT/HCPCS: 71101; 96372; 99283; J2930

== ENCOUNTER 2018-12-05 11:04 | Emergency (ER) | payer MEDICARE, OTHER ==
[~2018-12-05] VITALS: Ht 165.1 cm; Wt 110.0 kg
[~2018-12-05 11:04] MED LIST changes: -/METH500TA OR; +ABIL20TA5; -ARIP10TAB PO; +ARIP1TAB PO; +CHERSYP3 PO; +DOXY100C PO; +IBUP600T42 PO; -IBUP60TA PO; +METH1TAB40 OR; +NICO21DI3 TD; -NICO21PAT TD; -POTA20VL PO; +POTA2INJ30 PO; +PRED20TA PO; +TRAZ1TAB6 PO
[2018-12-05] MEDS ORDERED: GEOD20CA14 PO (11:22)
[2018-12-05] MEDS ORDERED: AMBI5TAB PO (11:23)
[2018-12-05] MEDS ORDERED: PERCOCET 5MG/325MG TAB PO ONE ×2 (11:45→13:00)
--- NOTE | 2018-12-05 12:55 | REP ---
UNILATERAL LEFT RIBS, PA CHEST, FIVE VIEWS: HISTORY: Left rib pain. COMPARISON: 11/17/2018 The lungs are clear. The heart is normal in size. The pulmonary vasculature is normal in appearance. There are fractures of the left 6th and 7th ribs. There are old fractures of several right and left 3rd ribs. IMPRESSION: Fractures of the left 6th and 7th ribs. Electronically Signed by Jesse Patel MD 12/05/2018 12:56 P
[2018-12-05] MEDS ORDERED: PERC10TA26 PO (13:29)
[2018-12-05 14:59] VITALS: BP 134/63
== END 2018-12-05 15:01 | disposition home or self-care (01) ==
LOC: EDBD 11:04 → M ED 11:04
DX: S22.42XA Multiple fractures of ribs, left side, initial encounter for closed fracture (principal); X58.XXXA Exposure to other specified factors, initial encounter; Y92.89 Other specified places as the place of occurrence of the external cause; R05 Cough; J44.9 Chronic obstructive pulmonary disease, unspecified; F43.10 Post-traumatic stress disorder, unspecified; F29 Unspecified psychosis not due to a substance or known physiological condition; F17.210 Nicotine dependence, cigarettes, uncomplicated; Z88.0 Allergy status to penicillin; Z88.8 Allergy status to other drugs, medicaments and biological substances; Z79.899 Other long term (current) drug therapy

== ENCOUNTER 2019-03-31 15:52 | Emergency (ER) | payer OTHER ==
[~2019-03-31] VITALS: Ht 165.1 cm; Wt 110.3 kg
[~2019-03-31 15:52] MED LIST changes: +AMBI5TAB PO; -ARIP1TAB3; +ARIP1TAB44; +GEOD20CA14 PO; +METH750T2; -METH75TA; +PERC10TA26 PO; +TRAZ1TAB10 PO; -TRAZO50TA PO
[2019-03-31] MEDS ORDERED: TRAZ-252 (16:36)
[2019-03-31] MEDS ORDERED: SYMB16INH INH (16:36)
[2019-03-31] MEDS ORDERED: NICOTINE 21MG/24HR 1 EA TRANSDERMAL TD ONE (16:45)
[2019-03-31 17:07] LABS: HEMATOCRIT 51.3 % (36.0-47.0); MEAN CORPUSCULAR HEMOGLOBIN 32.9 pg (27.0-33.0); MEAN CORPUSCULAR HGB CONC 33.1 g/dl (32.0-36.5); MEAN CORPUSCULAR VOLUME 99.4 fl (80.0-96.0); PLATELET COUNT, AUTOMATED 264 10^3/uL (150-450); RED BLOOD COUNT 5.16 10^6/uL (4.00-5.40); WHITE BLOOD COUNT 12.2 10^3/uL (4.0-10.0)
[2019-03-31 17:28] LABS: AMPHETAMINES LEVEL URINE NEGATIVE (NEGATIVE); BARBITURATES URINE NEGATIVE (NEGATIVE); BENZODIAZEPINES URINE NEGATIVE (NEGATIVE); CANNABINOIDS URINE NEGATIVE (NEGATIVE); COCAINE METABOLITE URINE NEGATIVE (NEGATIVE); METHADONE URINE NEGATIVE (NEGATIVE); OPIATES URINE NEGATIVE (NEGATIVE); PHENCYCLIDINE URINE NEGATIVE (NEGATIVE)
[2019-03-31 17:47] LABS: ACETAMINOPHEN LEVEL < 2.0 UG/ML (10.0-30.0); ALBUMIN 3.7 GM/DL (3.2-5.2); ALT/SGPT 27 U/L (12-78); BILIRUBIN,DIRECT 0.1 MG/DL (0.0-0.2); BILIRUBIN,TOTAL 0.3 MG/DL (0.2-1.0); BLOOD UREA NITROGEN 9 MG/DL (7-18); CALCIUM LEVEL 9.4 MG/DL (8.5-10.1); CARBON DIOXIDE LEVEL 30 MEQ/L (21-32); CHLORIDE LEVEL 106 MEQ/L (98-107); CREATININE FOR GFR 0.61 MG/DL (0.55-1.30); ETHYL ALCOHOL (ETHANOL) < 0.003 % (0.000-0.010); GLOMERULAR FILTRATION RATE > 60.0 (>51); GLUCOSE, FASTING 101 MG/DL (70-100); POTASSIUM SERUM 3.9 MEQ/L (3.5-5.1); SALICYLATE LEVEL 5.2 MG/DL (5.0-30.0); SODIUM LEVEL 142 MEQ/L (136-145); THYROID STIMULATING HORMONE 0.294 uIU/ML (0.358-3.740); TOTAL PROTEIN 6.9 GM/DL (6.4-8.2)
[2019-03-31 17:55] LABS: HCG, SERUM QUALITATIVE NEGATIVE (NEGATIVE)
--- NOTE | 2019-03-31 20:15 | ECGEPIP ---
[facility] - ED Test Date: 2019-03-31 Pat Name: BERE CORNEJO Department: Room: - Gender: Female Pipeline Superintendent Division: : 1960 Requested By: CALISTA PARISH Order Number: [id number] Reading MD: Israel Macedo Measurements Intervals [place] Rate: 96 P: 78 GA: 176 QRS: 64 QRSD: 93 T: 77 QT: 354 QTc: 449 Interpretive Statements SINUS RHYTHM POSSIBLE LEFT ATRIAL ENLARGEMENT INCOMPLETE RIGHT BUNDLE BRANCH BLOCK SIMILAR TO 04/09/18 Electronically Signed on 03-31-2019 20:15:18 EDT by Israel Macedo
[2019-04-01 03:54] VITALS: BP 128/62
== END 2019-04-01 03:57 | disposition short-term general hospital (02) ==
LOC: M ED 15:52
DX: F60.3 Borderline personality disorder (principal); F23 Brief psychotic disorder; J44.9 Chronic obstructive pulmonary disease, unspecified; J45.909 Unspecified asthma, uncomplicated; Z79.899 Other long term (current) drug therapy; F17.210 Nicotine dependence, cigarettes, uncomplicated
CPT/HCPCS: 36415; 80048; 80076; 80307; 84443; 84703; 85027; 93005; 99285; G0480